=== PATIENT | female | born 1995 | race Caucasian/White ===

== ENCOUNTER 2016-03-24 09:16 | Emergency (ER) | payer OTHER ==
--- NOTE | 2016-03-24 09:23 | EDPHY ---
H & P Time Seen by Provider: 03/24/16 09:22 HPI/ROS: Chief complaint. Eye pain HPI. 21-year-old female with right eye pain after sleeping with her contacts in. This was the night before last and she woke up with pain yesterday morning. She thought it would get better and so she stayed in darkened room and slept. This morning however she has pain in the right eye especially with blinking and movement. She is more comfortable keeping her eyes closed. Left eye is without symptoms. Patient otherwise has no drainage or discharge. She is not sick with upper respiratory symptoms. She has had previous corneal abrasion from her contacts ROS Constitutional. no fever/chills, no weakness Eyes. Right eye pain ENT. no sore throat, no nasal drainage Cardiovascular. no chest pain Respiratory. no shortness of breath, no cough Abdominal. no abdominal pain, no nausea/vomiting, no diarrhea . no problems urinating MS. no calf pain/swelling, no neck/back pain, no joint pain Skin. no rash Lymph. no swollen glands Neuro. no headache, no dizziness, no difficulty walking or with speech Past Medical/Surgical History: Left ACL repair Social History: Single nonsmoker no alcohol Smoking Status: Never smoked Physical Exam: General Appearance: Alert well-developed female moderate distress eyes closed vitals are stable Eyes: Pupils are equal round reactive. There is injection in the right eye. Left eye appears normal. No drainage ENT, Mouth: Mucous membranes are moist. Respiratory: There are no retractions, lungs are clear to auscultation. Cardiovascular: Regular rate and rhythm. Gastrointestinal: Abdomen is soft and nontender, no masses, bowel sounds normal. Neurological: Awake and alert, sensory and motor exams grossly normal. Skin: Warm and dry, no rashes. Musculoskeletal: Neck is supple nontender. Extremities symmetrical, full range of motion. Psychiatric: Patient is oriented X 3, there is no agitation. Constitutional: Initial Vital Signs Temperature (C) 36.7 C 03/24/16 09:22 Heart Rate 80 03/24/16 09:22 Respiratory Rate 16 03/24/16 09:22 Blood Pressure 142/101 H 03/24/16 09:22 O2 Sat (%) 97 03/24/16 09:22 O2 Delivery Mode Room Air Allergies/Adverse Reactions: No Known Allergies Allergy (Unverified 05/25/16 22:18) Home Medications: Medication Instructions Recorded Hydrocodone/APAP 5/325 [[place] 1 - 2 tab PO Q4 PRN #40 tab 08/12/15 5/325 (*)] Ibuprofen [Motrin (*)] 600 mg PO Q6 PRN #60 tab 08/12/15 Ciprofloxacin [Ciloxan Opht Oint] 0.5 inch RTEYE TID #1 opht.oint 03/24/16 oxyCODONE/APAP 5/325 [Percocet 1 tab PO Q4-6PRN PRN #14 tab 03/24/16 5/325] Medical Decision Making Procedures: Alcaine and floor seen or instilled in both eyes. The slit lamp is not working for blue light and slit-lamp exam. I used a Wood' s lamp which shows a corneal abrasion on the right eye. None seen on the left eye. Patient has the floor seen irrigated. ED Course/Re-evaluation: Patient and I discussed treatment plan including criteria for return and importance of follow-up and further evaluation. She expresses understanding and agreement. Patient has a regular doctor of podiatric medicine at [facility] Differential Diagnosis: Corneal abrasion, corneal ulcer, iritis. It appears the patient has a corneal abrasion and I do not see a corneal ulcer. Again the slit lamp was not working and the exam is somewhat limited by this - Data Points Medications Given: Discontinued Medications Fluorescein Sodium (Kmmva-C-Zakrn) 1 mg OP EDNOW ONE Stop: 03/24/16 09:31 Last Admin: 03/24/16 09:35 Dose: 1 mg Proparacaine HCl (Alcaine 0.5%) 1 drops EACHEYE ONCE ONE Stop: 03/24/16 09:31 Last Admin: 03/24/16 09:35 Dose: 1 drops Departure - Departure Disposition: Home, Routine, Self-Care Clinical Impression: Corneal abrasion Qualifiers: Encounter type: initial encounter Laterality: right Qualifier Code: (S05.01XA) Injury of conjunctiva and corneal abrasion without foreign body, right eye, initial encounter Condition: Good Instructions: Corneal Abrasion (ED) Additional Instructions: Antibiotic eye ointment 3 times daily for 2 days and then twice daily for 3 more days. Ibuprofen and Percocet as needed for pain. No contact lens wear until 24 hours after your eye has returned to normal. Return for worsening pain , fever, drainage. Re-evaluation of your eye at [facility] in 48 hours if not improving Referrals: Jacque Ann MD [Primary Care Provider] - As per Instructions Justin Gonzalez MD [Medical Doctor] - 2-3 days, if not improved Prescriptions: Ciprofloxacin [Ciloxan Opht Oint] 0.5 inch RTEYE TID #1 opht.oint oxyCODONE/APAP 5/325 [Percocet 5/325] 1 tab PO Q4-6PRN PRN #14 tab PRN Reason: Pain, Moderate
[2016-03-24] MEDS ORDERED: PROPARACAINE 0.5% 15 ML OPHT DROP ONE (09:24)
[2016-03-24 09:26] VITALS: BP 142/101; PULSE 80; RESP 16; TEMP 98.1; O2SAT 97
[2016-03-24] MEDS ORDERED: FLUORESCEIN SODIUM 1 MG STRIP OP ONE ×2 (09:30→09:31)
[2016-03-24] MEDS ORDERED: PROPARACAINE 0.5% 15 ML OPHT DROP EACHEYE ONE (09:30)
== END 2016-03-24 10:20 | disposition home or self-care (01) ==
DX: S05.01XA Injury of conjunctiva and corneal abrasion without foreign body, right eye, initial encounter (principal); X58.XXXA Exposure to other specified factors, initial encounter

== ENCOUNTER 2017-07-29 18:09 | Emergency (ER) | payer OTHER ==
[2017-07-29] MEDS ORDERED: NS 1,000 ML IV ONE (18:32)
[2017-07-29 18:37] LABS: PLATELET COUNT 235 10^3/uL (150-400)
--- NOTE | 2017-07-29 18:39 | CPEKG ---
Heart Rate: 83 RR Interval: 723 P-R Interval: 160 QRSD Interval: 84 QT Interval: 420 QTC Interval: 494 P Putnam Station: -4 QRS [place] Station: 51 T Wave [place]nam Station: 45 EKG Severity - BORDERLINE ECG - EKG Impression: SINUS RHYTHM Electronically Signed By: Stephen Martinez 29-Jul-2017 20:20:57
--- NOTE | 2017-07-29 18:50 | EDPHY ---
H & P Source: Patient Exam Limitations: No limitations - Personal History LMP (Females 10-55): Now Tetanus Vaccine Date: 05/30 - Medical/Surgical History Hx Asthma: No Hx Chronic Respiratory Disease: No Hx Diabetes: No Hx Cardiac Disease: No Hx Renal Disease: No Hx Cirrhosis: No Hx Alcoholism: No Hx HIV/AIDS: No Hx Splenectomy or Spleen Trauma: No Other PMH: L ACL [id number] - Social History Smoking Status: Never smoked Time Seen by Provider: 07/29/17 18:46 HPI/ROS: HPI: This is a 22-year-old female who presents with Chief Complaint: Fainted Location: head Quality: Pain to x3 Duration: Prior to arrival Signs and Symptoms: no fever, + nausea, no vomiting, no hematemesis, no blood in stool, no abdominal bloating, no diarrhea, no back pain, no urinary symptoms , + vaginal bleeding x 2 weeks, no indigestion, no chest pain, no shortness of breath Timing: Acute Severity: Moderate Context: Patient arrives via EMS as 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 Patient reports that the last time she was approximately 6 hr ago. She reports that she has a history of hypoglycemia and fainting episode secondary to low blood sugar. She also notes that she has been having vaginal bleeding x2 weeks. She has been using half a pack a tampons approximately 1 tampon every 2 hr for the last 2 weeks. She reports that she last saw her OBGYN approximately 2 years ago. 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 She denies any abdominal pain/vomiting/diarrhea /fever/urinary symptoms. She reports that she has Nexplanon and that this may be causing her dysfunctional uterine bleeding. She has an appointment to follow up with her OBGYN to discuss alternative options. She denies any chest pain/shortness of breath/palpitations. Patient reports that her right hip mildly hurts but denies any decreased range of motion/paresthesias/weakness. She also has a dull aching frontal headache. Not the worst of her life. Denies any neck pain/visual changes. Patient upon me entering the room is tearful and reports that she feels silly for calling EMS and being transported to the hospital. We discussed obtaining a pelvic ultrasound and she politely declined that she wishes to follow up with her OBGYN. She does not believe that her fainting episodes are related to any pelvic abnormality. EMS started IV fluids en route. Patient also reports that she has a history of iron deficiency and supposed to be taking iron supplements which she has not for unknown reasons. No history of diabetes. Modifying Factors: IVF Comment: ROS: see HPI Constitutional: No fever, no chills, no weight loss Eyes: No blurred vision Respiratory: No shortness of breath, no cough Cardiovascular: No chest pain, no palpitations Gastrointestinal: No nausea, no vomiting, no diarrhea, no hematemesis, no blood in stool Genitourinary: No dysuria, no blood in urine Extremities: No myalgias, no edema Neurologic: No weakness, no numbness Skin: No rashes, no petechiae Hematologic: No bruising, no bleeding MEDICAL/SURGICAL/SOCIAL HISTORY: Medical history: Generally healthy. Does not take any regular medications. 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 Family history noncontributory. CONSTITUTIONAL: Tearful, nontoxic appearing young adult white female, awake and alert, no obvious distress HEENT: Atraumatic and normocephalic, PERRL, EOMI. Nares patent; no rhinorrhea; no nasal mucosal edema. Tympanic membranes clear. Oropharynx clear, no exudate and moist pink mucosa. Airway patent. No lymphadenopathy. No meningismus. Cardiovascular: Normal S1/S2, regular rate, regular rhythm, without murmur rub or gallop. PULMONARY/CHEST: Symmetrical and nontender. Clear to auscultation bilaterally. Good air movement. No accessory muscle usage. ABDOMEN: Soft, nondistended, nontender, no rebound, no guarding, no peritoneal signs, no masses or organomegaly. No CVAT. EXTREMITIES: 2/2 pulses, strength 5/5, no deformities, no clubbing, no cyanosis or edema. NEUROLOGICAL: no focal neuro deficits. GCS 15. SKIN: Warm and dry, no erythema. no rash. Good capillary refill. (Lucila Pickens) Constitutional: Initial Vital Signs Temperature (C) 37 C 07/29/17 18:45 Heart Rate 72 07/29/17 18:45 Respiratory Rate 16 07/29/17 18:45 Blood Pressure 128/72 H 07/29/17 18:45 O2 Sat (%) 99 07/29/17 18:45 O2 Delivery Mode Room Air Allergies/Adverse Reactions: No Known Allergies Allergy (Verified 07/29/17 18:43) Home Medications: Medication Instructions Recorded Nexplanon 07/29/17 Medical Decision Making - Diagnostics EKG Interpretation: EKG: Complete interpretation has been separately recorded in the [facility] archive. Summary impression: Sinus rhythm (Stephen Martinez) Imaging Results: Imaging Impressions Hip X-Ray 07/29/17 18:32 Impression: No acute osseous findings. ED Course/Re-evaluation: EKG, labs, orthostatics right hip x-ray ordered EKG shows normal sinus rhythm with no acute ischemic changes; arrhythmia. Patient was actively shaking due to the IV fluids during EKG x3. Patient given 1 L normal saline 1852: Labs reviewed. No signs of leukocytosis/anemia/IZAIAH/electrolyte imbalance. Serum glucose 65; cookie and juice provided. Right hip x-ray my read shows no signs of fracture/dislocation/degenerative changes. Moderate stool burden noted. Orthostatics unremarkable. No indication for Head CT imaging. Reassessed patient who reports that she feels 100% better. Discussed with her filling her TXA prescription, follow up with OBGYN, eating regularly. This patient was seen under the supervision of my secondary supervising physician. I evaluated care for this patient independently. Discussed this patient with Dr. Martinez who did not see the patient. (Lucila Pickens) Differential Diagnosis: Syncope including but not limited to vasovagal syncope, arrhythmia, dehydration , and blood loss. (Lucila Pickens) Other Provider: PHYSICIAN DOCUMENTATION: The patient was evaluated and managed by the Physician Range Rider. My co- signature indicates that I have reviewed this chart and I agree with the findings and plan of care as documented. I am the secondary supervising physician. (Stephen Martinez) - Data Points Laboratory Results: Laboratory Results 07/29/17 18:16 07/29/17 18:16 07/29/17 07/29/17 18:16 18:16 WBC 6.15 10^3/uL 10^3/uL (3.80-9.50) RBC 4.14 10^6/uL L 10^6/uL (4.18-5.33) Hgb 12.7 g/dL g/dL (12.6-16.3) Hct 37.7 % L % (38.0-47.0) MCV 91.1 fL fL (81.5-99.8) MCH 30.7 pg pg (27.9-34.1) MCHC 33.7 g/dL g/dL (32.4-36.7) RDW 12.8 % % (11.5-15.2) Plt Count 235 10^3/uL 10^3/uL (150-400) MPV 10.8 fL fL (8.7-11.7) Neut % (Auto) 61.6 % % (39.3-74.2) Lymph % (Auto) 30.4 % % (15.0-45.0) Wilkin % (Auto) 5.9 % % (4.5-13.0) Eos % (Auto) 1.3 % % (0.6-7.6) Baso % (Auto) 0.5 % % (0.3-1.7) Nucleat RBC Rel Count 0.0 % % (0.0-0.2) Absolute Neuts (auto) 3.79 10^3/uL 10^3/uL (1.70-6.50) Absolute Lymphs (auto) 1.87 10^3/uL 10^3/uL (1.00-3.00) Absolute Monos (auto) 0.36 10^3/uL 10^3/uL (0.30-0.80) Absolute Eos (auto) 0.08 10^3/uL 10^3/uL (0.03-0.40) Absolute Basos (auto) 0.03 10^3/uL 10^3/uL (0.02-0.10) Absolute Nucleated RBC 0.00 10^3/uL 10^3/uL (0-0.01) Immature Gran % 0.3 % % (0.0-1.1) Immature Gran # 0.02 10^3/uL 10^3/uL (0.00-0.10) Sodium 143 mEq/L mEq/L (135-145) Potassium 4.0 mEq/L mEq/L (3.3-5.0) Chloride 104 mEq/L mEq/L (97-110) Carbon Dioxide 21 mEq/l L mEq/l (22-31) Anion Gap 18 mEq/L H mEq/L (8-16) BUN 11 mg/dL mg/dL (7-23) Creatinine 0.8 mg/dL mg/dL (0.6-1.0) Estimated GFR > 60 Glucose 65 mg/dL L mg/dL (70-100) Calcium 9.1 mg/dL mg/dL (8.5-10.4) Medications Given: Discontinued Medications Sodium Chloride (Ns) 1,000 mls @ 0 mls/hr IV EDNOW ONE; Wide Open PRN Reason: Protocol Stop: 07/29/17 18:33 Last Admin: 07/29/17 18:51 Dose: 1,000 mls Departure - Departure Disposition: Home, Routine, Self-Care Clinical Impression: Nondiabetic hypoglycemia, Fasting hypoglycemia Fainting episodes Qualifiers: Syncope type: unspecified Qualified Code(s): R55 - Syncope and collapse Condition: Good Instructions: Dysfunctional Uterine Bleeding (ED), Syncope (ED), Non-diabetic Hypoglycemia (ED) Additional Instructions: Please eat regular meals throughout the day. Consume a minimum of 8-10 glasses of water or electrolyte fluid replacement drinks that include Gatorade, Powerade, Pedialyte. Fill your prescription for dysfunctional uterine bleeding. Start taking your iron supplementation again. Follow-up with your primary care provider and OBGYN. Follow-Up: Please follow-up as noted above. Follow-up sooner if your condition worsens or if you develop any new problems. Call as soon as possible for an appointment. Be clear when you call for an appointment that this is an Emergency Department follow-up. Contact the Emergency Department if you have trouble arranging follow-up care. Our referrals are not based on your insurance network. When time allows, contact your insurance carrier to verify the referral physician is in your plan. If not, get a referral for an in-network professional. Referrals: Patient,NotPresent [Unknown] - As per Instructions
[2017-07-29 19:15] VITALS: BP 104/67
== END 2017-07-29 19:50 | disposition home or self-care (01) ==
LOC: EDUNIT#
DX: R55 Syncope and collapse (principal); E16.2 Hypoglycemia, unspecified; E86.9 Volume depletion, unspecified

== ENCOUNTER 2018-07-14 21:29 | Emergency (ER) | payer OTHER ==
--- NOTE | 2018-07-14 21:55 | EDPHY ---
H & P Time Seen by Provider: 07/14/18 21:45 HPI/ROS: CHIEF COMPLAINT: Left middle digit laceration HISTORY OF PRESENT ILLNESS: 23-year-old [id number] female with up-to- date tetanus complaining of accidental laceration left middle digit palmar aspect distal phalanx when she was cutting a pineapple. Occurred shortly prior to arrival PHYSICAL EXAM (Prior to examination, patient consented to physical exam, hands were washed and my usual and customary physical exam procedures followed) 1) GENERAL: Well-developed, well-nourished, alert and oriented. Appears to be in no acute distress. 2) HEAD: Normocephalic 3) HEENT: sclera anicteric 4) LUNGS: Breathing comfortably. 5) SKIN: Left middle digit distal phalanx palmar aspect 2 cm linear transverse laceration. 6) MUSCULOSKELETAL: FDP, FDS intact. 7) NEUROLOGIC: Two-point discrimination intact Smoking Status: Never smoked Constitutional: Initial Vital Signs Temperature (C) 36.7 C 07/14/18 21:33 Heart Rate 81 07/14/18 21:33 Respiratory Rate 17 07/14/18 21:33 Blood Pressure 130/84 H 07/14/18 21:33 O2 Sat (%) 98 07/14/18 21:33 O2 Delivery Mode Room Air Allergies/Adverse Reactions: No Known Allergies Allergy (Verified 07/14/18 21:31) Home Medications: Medication Instructions Recorded Nexplanon 07/29/17 MDM/Departure - MDM Procedures: Procedure: Laceration repair. I explained the indications, risks and benefits for both laceration repair and anesthetic administration. Verbal consent was obtained from the patient. The laceration on the left middle digit was anesthetized using 0.5% bupivicaine without epinephrine digital nerve block. After anesthetic administered the patient was observed for a period of time and had no apparent adverse effects. The wound was cleaned, prepped, draped in normal sterile fashion and explored to its base. No foreign body seen, no foreign bodies palpated. There were no deep structures involved. No tendon injury was identified. The wound was repaired with 8 simple interrupted 5 O Prolene sutures. The wound repair was simple. The procedure was performed by myself. Patient has been informed that scarring will occur, although efforts have been made to minimize this. - Depart Disposition: Home, Routine, Self-Care Clinical Impression: Finger laceration Qualifiers: Encounter type: initial encounter Finger: middle finger Damage to nail status: without damage Foreign body presence: without foreign body Laterality: left Qualified Code(s): S61.213A - Laceration without foreign body of left middle finger without damage to nail, initial encounter Condition: Good Instructions: Laceration (ED) Additional Instructions: Return to the ER if you develop redness, swelling, discharge, warmth to the wound, red streaks going up your arm, or any other symptoms that concern you. Referrals: Return, to the ER in 10 days for suture removal [Other] - As per Instructions
[2018-07-14 22:46] VITALS: BP 121/73
== END 2018-07-14 22:45 | disposition home or self-care (01) ==
PROC: 0HQGXZZ Repair Left Hand Skin, External Approach (ICD-10-PCS; principal; 2018-07-14)
DX: S61.213A Laceration without foreign body of left middle finger without damage to nail, initial encounter (principal); W26.0XXA Contact with knife, initial encounter; Y93.G1 Activity, food preparation and clean up